=== PATIENT | female | born 1995 | race Caucasian/White ===

== ENCOUNTER → 2017-12-02 | Outpatient (CLI) | payer OTHER ==
[~2017-12-02] MED LIST: GADAVIST IV PRN
--- NOTE | 2017-12-02 14:11 | DIAGNOSTIC IMAGING REPORT ---
BRAIN COMBO FOR MS HISTORY: 22 years-old Female ARM/LEG WEAKNESS,TREMOR,FATIGUE,POSSIBLE MS acute bilateral arm and leg weakness with tremor and fatigue. Clinical concern for possible multiple sclerosis. COMPARISON: None available TECHNIQUE: Multiplanar multisequence MRI of the brain was obtained both with and without the use of 9 mL Gadavist FINDINGS: There is no restricted diffusion to suggest acute or subacute infarction. Ill-defined punctate area of slightly increased signal on the diffusion-weighted sequence involving the subcortical right frontal lobe, image 21 series 4 is favored to be artifactual. The large lrxot-[id number] receiving room clerk localizer images demonstrate no gross abnormality. The midline structures including the corpus callosum, brainstem, optic chiasm, pituitary and pineal glands appear unremarkable the sagittal T1 series. There is no cerebellar tonsillar herniation. The imaged cervical spine appears unremarkable. There is mild hypertrophy of the adenoid tonsils without significant narrowing of the nasopharynx. There is no acute intracranial hemorrhage, midline shift, abnormal extra-axial collections or hydrocephalus identified. No significant T2/FLAIR signal abnormalities identified to suggest demyelinating disease. No infratentorial lesions or lesions within the imaged brainstem or spinal cord identified. Nonspecific mildly prominent posterior chain cervical lymph nodes are present bilaterally measuring up to 8 mm in short axis on the right. There is no abnormal intra-axial or extra-axial enhancement identified. The major flow voids at the level of the skull base appear patent. Minimal mucosal thickening of the ethmoid air cells and inferior left maxillary sinus. The mastoid air cells are clear. The orbits, scalp, calvarium and soft tissues are within normal limits. IMPRESSION: 1. No acute intracranial abnormality identified. No abnormal enhancement. 2. No T2/FLAIR signal abnormalities identified within the brain parenchyma to suggest demyelinating disease. The above report was generated using voice recognition software. It may contain grammatical, syntax or spelling errors. Electronically signed by: Chon Ward M.D. 12/02/2017 2:09 PM Dictated Date/Time: 12/02/2017 2:02 PM
== END | disposition home or self-care (01) ==
LOC: C.MRI 12:30
PROVIDERS: ATTEND Physician Assistant
DX: R25.1 Tremor, unspecified (principal)

== ENCOUNTER → 2017-12-16 | Outpatient (CLI) | payer OTHER ==
[2017-12-21 02:18] LABS: ACETYLCHOLINE RECEPT BLOCKING <15 % inhibit (<15)
== END | disposition home or self-care (01) ==
LOC: C.LAB1850 08:59
PROVIDERS: ATTEND Psychiatry & Neurology Neurology
DX: M62.81 Muscle weakness (generalized) (principal); R25.1 Tremor, unspecified; R20.2 Paresthesia of skin

== ENCOUNTER → 2017-12-24 | Outpatient (CLI) | payer OTHER ==
[2017-12-24 10:48] LABS: ALBUMIN 3.3 gm/dl (3.4-5.0); ALKALINE PHOSPHATASE 77 U/L (45-117); ALT/SGPT 17 U/L (12-78); AST/SGOT 15 U/L (15-37); TOTAL PROTEIN 7.6 gm/dl (6.4-8.2)
== END | disposition home or self-care (01) ==
LOC: C.LAB1850 09:06
PROVIDERS: ATTEND Psychiatry & Neurology Neurology
DX: R53.83 Other fatigue (principal); M62.81 Muscle weakness (generalized); R25.3 Fasciculation

== ENCOUNTER → 2017-12-25 | Outpatient (CLI) | payer OTHER ==
[2017-12-26 15:42] LABS: ANA SCREEN TC 249X NEGATIVE (NEGATIVE)
== END | disposition home or self-care (01) ==
LOC: C.LAB1850 09:40
PROVIDERS: ATTEND Internal Medicine Infectious Disease
DX: R53.83 Other fatigue (principal)

== ENCOUNTER → 2017-12-29 | Outpatient (CLI) | payer OTHER | END | disposition home or self-care (01) | LOC: C.LABSPEC 09:24 | PROVIDERS: ATTEND Psychiatry & Neurology Neurology | DX: M62.81 Muscle weakness (generalized) (principal); R25.3 Fasciculation ==

== ENCOUNTER → 2018-01-05 | Outpatient (CLI) | payer OTHER | END | disposition home or self-care (01) | LOC: C.LABSPEC 09:21 | PROVIDERS: ATTEND Psychiatry & Neurology Neurology | DX: M26.81 Anterior soft tissue impingement (principal); R25.3 Fasciculation ==

== ENCOUNTER → 2018-01-21 | Outpatient (CLI) | payer OTHER ==
--- NOTE | 2018-01-21 18:03 | DIAGNOSTIC IMAGING REPORT ---
CERVICAL SPINE COMBO HISTORY: 22 years-old Female M62.81 Muscle weakness (generalized)R20.2 [id number] Neck acute neck pain with bilateral arm weakness COMPARISON: Brain MRI 12/02/2017 TECHNIQUE: Multiplanar multisequence MRI of the cervical spine obtained both with and without the use of 9 mL Gadavist FINDINGS: The large jakqx-hy-qmbd die cleaner localizer images demonstrate no gross abnormality. Imaged neck soft tissues and posterior fossa structures are unremarkable. There is mild polypoid mucosal thickening of the left maxillary sinus. Mild disc desiccation is noted at C2-C3 and C5-C6. Signal within the imaged cervical spinal cord is within normal limits. No focal bone marrow edema, acute fracture or subluxation. Postcontrast images are motion degraded. No abnormal enhancement identified. 4 mm T2 hyperintense submandibular lesion suggests a normal level 1 lymph node. C2-C3: Minimal uncovertebral spurring without central canal or foraminal narrowing. C3-C4: No central canal or foraminal narrowing. C4-C5: No central canal or foraminal narrowing. C5-C6: Disc desiccation without definite disc bulge, central canal or foraminal narrowing. C6-C7: No central canal or foraminal narrowing. C7-T1: No central canal or foraminal narrowing. The imaged upper thoracic levels appear unremarkable. IMPRESSION: 1. Mildly motion degraded exam without acute bone marrow edema, high-grade central canal or foraminal narrowing. 2. No abnormal enhancement identified. 3. Mild disc desiccation at C2-C3 and C5-C6 without annular disc bulge. The above report was generated using voice recognition software. It may contain grammatical, syntax or spelling errors. Electronically signed by: Chon Ward M.D. 01/21/2018 6:02 PM Dictated Date/Time: 01/21/2018 5:52 PM
== END | disposition home or self-care (01) ==
LOC: C.MRI 16:34
PROVIDERS: ATTEND Physician Assistant
DX: M48.02 Spinal stenosis, cervical region (principal); M50.31 Other cervical disc degeneration, high cervical region; M62.81 Muscle weakness (generalized); R20.2 Paresthesia of skin